=== PATIENT | female | born 1970 | race Asian ===

== ENCOUNTER 2018-06-12 08:38 | Emergency (ER) | payer BC, SELFPAY ==
[~2018-06-12] VITALS: Ht 162.6 cm; Wt 58.1 kg
[2018-06-12 08:45] VITALS: BP 122/65
--- NOTE | 2018-06-12 08:55 | NUR ---
ED Nurse Note: Pt came in due right groin pain on and off but getting worse. Pt was hiking last wednesday when pain started. No open wounds or obvious fracture. More painful when palpated.
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
[2018-06-12] MEDS ORDERED: Methocarbamol 750mg tab ORAL ONE (09:15)
[2018-06-12] MEDS ORDERED: Ketorolac 60mg Inj IM ONE (09:15)
--- NOTE | 2018-06-12 09:26 | NUR ---
urine specimen sent.
[2018-06-12 09:36] LABS: APPEARANCE,URINE CLEAR; BILIRUBIN, URINE NEGATIVE (NEGATIVE); COLOR,URINE PALE YELLOW; GLUCOSE, URINE (UA) NEGATIVE (NEGATIVE); KETONES,URINE NEGATIVE (NEGATIVE); LEUKOCYTE ESTERASE ,URINE 1+ (NEGATIVE); NITRITE,URINE NEGATIVE (NEGATIVE); PH,URINE 6.5 (4.5-8.0); PROTEIN,URINE NEGATIVE (NEGATIVE); UROBILINOGEN,URINE NORMAL MG/DL (0.0-1.0)
--- NOTE | 2018-06-12 09:40 | NUR ---
ED Nurse Note: ERMD notified regarding pt's urine result negative.
--- NOTE | 2018-06-12 09:41 | NUR ---
ED Nurse Note: called CT.
--- NOTE | 2018-06-12 09:46 | NUR ---
pt off to ct.
--- NOTE | 2018-06-12 10:24 | Diagnostic Imaging Report ---
EXAM: CT Pelvis Without Intravenous Contrast CLINICAL HISTORY: PAIN TECHNIQUE: Axial computed tomography images of the pelvis without intravenous contrast. CTDI is 11.55 mGy and DLP is 299 mGy-cm. One or more of the following dose reduction techniques were used: automated exposure control, adjustment of the mA and/or kV according to patient size, use of iterative reconstruction technique. Coronal and sagittal reformatted images were created and reviewed. COMPARISON: No relevant prior studies available. FINDINGS: Bowel: Mild fecal retention in the rectosigmoid, which may suggest mild constipation or impaction. No obstruction. No mucosal thickening. Appendix: No findings to suggest acute appendicitis. Intraperitoneal space: Unremarkable. No free air. No significant fluid collection. Bladder: Unremarkable. No stones. Reproductive: Unremarkable as visualized. Bones/joints: Tiny 3 mm well-corticated ossific body adjacent to the right anterior inferior iliac spine, possibly presenting a subtle avulsion fragment. This is the attachment site of the right rectus femoris muscle. No acute fracture. No dislocation. Soft tissues: Unremarkable. Vasculature: Unremarkable. No lower abdominal aortic aneurysm. Lymph nodes: Unremarkable. No enlarged lymph nodes. IMPRESSION: 1. Tiny 3 mm well-corticated ossific body adjacent to the right anterior inferior iliac spine, possibly presenting a subtle avulsion fragment. This is the attachment site of the right rectus femoris muscle. 2. Mild fecal retention in the rectosigmoid, which may suggest mild constipation or impaction. 3. Otherwise no acute findings in the pelvis.
[2018-06-12] MEDS ORDERED: IBUPROFEN600 MG ORAL (10:40)
[2018-06-12] MEDS ORDERED: ROBAXIN-750750 MG PO (10:40)
[2018-06-12 10:44] VITALS: BP 125/77
--- NOTE | 2018-06-12 10:44 | NUR ---
ED Nurse Note: Pt cleared by health care provider for discharge. DC instructions/prescription was given and explained to pt and verbalized understanding of teachings. All medical office administrator such as ID band removed. Pt is AAO x4, ambulatory and left with all personal belongings. Pt left with her family member.
== END 2018-06-12 10:44 | disposition home or self-care (01) ==
LOC: EMR 08:50
DX: S39.011A Strain of muscle, fascia and tendon of abdomen, initial encounter (principal); X58.XXXA Exposure to other specified factors, initial encounter; Y92.9 Unspecified place or not applicable
CPT/HCPCS: 72192; 81003; 81025; 96372; 99284